=== PATIENT | male | born 1965 | race Caucasian/White ===

== ENCOUNTER 2016-10-27 21:20 | Emergency (ER) | payer SELFPAY ==
[~2016-10-27] VITALS: Ht 182.9 cm; Wt 86.2 kg
--- NOTE | 2016-10-27 21:40 | NUR ---
PT C/O ABD PAIN WITH NAUSEA X 1 DAY AND PT STATES HE IS URINATING EVERY TEN MINUTES, PT STATES HE HAS AN ENLARGED PROSTATE. PT AOX4 RR EVEN AND UNLABORED. NO SOB NOTED. NAD NOTED. NO NVD AT THIS TIME. PT WAITING FOR MD WALTERS.
--- NOTE | 2016-10-27 21:48 | NUR ---
LAB AT BEDSIDE FOR BLOOD DRAW.
--- NOTE | 2016-10-27 22:02 | NUR ---
URINE COLLECTED. SENT TO LAB.
[2016-10-27 22:07] LABS: BASOPHILS % (AUTO) 0.4 % (0.0-2.0); EOSINOPHILS # (AUTO) 0.1 /CMM (0.0-0.7); EOSINOPHILS % (AUTO) 1.1 % (0.0-6.0); HEMATOCRIT 44 % (39-51); HEMOGLOBIN 14.9 g/dL (13.5-17.5); LYMPHOCYTES # (AUTO) 2.1 /CMM (0.8-4.8); LYMPHOCYTES % (AUTO) 27.8 % (20.0-44.0); MEAN CORPUSCULAR HEMOGLOBIN 30 PG (26.0-33.0); MEAN CORPUSCULAR HGB CONC 34 g/dl (31.0-36.0); MEAN CORPUSCULAR VOLUME 87 fL (80-96); MONOCYTES # (AUTO) 0.8 /CMM (0.1-1.30); MONOCYTES % (AUTO) 10.4 % (2.0-12.0); NEUTROPHILS # (AUTO) 4.5 /CMM (1.8-8.9); NEUTROPHILS % (AUTO) 60.3 % (43.0-81.0); PLATELET COUNT (AUTO) 247 /CMM (150-450); RDW COEFFICIENT OF VARIATION 14.7 (11.5-15.0); RED BLOOD CELL COUNT(AUTO) 5.04 MIL/uL (4.5-6.0); WHITE BLOOD COUNT (AUTO) 7.5 K/uL (4.3-11.0)
--- NOTE | 2016-10-27 22:12 | NUR ---
DR. BENTLEY AT BEDSIDE FOR EVAL.
[2016-10-27 22:19] LABS: BILIRUBIN,URINE NEGATIVE (NEGATIVE); BLOOD, URINE NEGATIVE Ery/uL (NEGATIVE); COLOR,URINE YELLOW (YELLOW); KETONES,URINE NEGATIVE (NEGATIVE); LEUKOCYTE ESTERASE ,URINE NEGATIVE (NEGATIVE); NITRITE, URINE NEGATIVE (NEGATIVE); PROTEIN,URINE NEGATIVE (NEGATIVE); UGLUCOSE NEGATIVE (NEGATIVE); UROBILINOGEN,URINE 0.2 EU/dL (0.2)
[2016-10-27 22:25] LABS: CALCIUM, SERUM 8.4 mg/dL (8.5-10.1); CREATININE 0.8 mg/dL (0.6-1.3); POTASSIUM 3.8 mmol/L (3.5-5.1)
[2016-10-27 22:27] LABS: APPEARANCE,URINE CLEAR (CLEAR)
[2016-10-27 22:30] LABS: ALBUMIN 3.4 g/dL (3.4-5.0); BILIRUBIN,DIRECT 0.1 mg/dL (0.0-0.2); TOTAL PROTEIN, SERUM 6.3 g/dL (6.4-8.2)
[2016-10-27] MEDS ORDERED: ONDANSETRON 4 MG TAB.RAPDIS PO ONE (22:30)
[2016-10-27] MEDS ORDERED: ONDANSETRON 4 MG TAB.RAPDIS ONE (22:30)
--- NOTE | 2016-10-27 23:12 | NUR ---
PT TO CT.
--- NOTE | 2016-10-28 00:25 | NUR ---
DR. BENTLEY AT BEDSIDE SPEAKING TO PT REGARDING RESULTS.
--- NOTE | 2016-10-28 00:31 | NUR ---
Patient discharged to home in stable condition. Written and verbal after care instructions given. Patient verbalizes understanding of instruction. ambulatory with a steady gait
[2016-10-28 00:32] VITALS: BP 138/68
== END 2016-10-28 00:32 | disposition home or self-care (01) ==
LOC: ER 21:23
DX: N40.1 Benign prostatic hyperplasia with lower urinary tract symptoms (principal); K59.00 Constipation, unspecified; Z91.02 Food additives allergy status
CPT/HCPCS: 36415; 80048-TC; 80076-TC; 81000-TC; 83690-TC; 85025-TC; 87086-TC; A4606; Q0162; Z7610